=== PATIENT | male | born 1990 | race Caucasian/White ===

== ENCOUNTER 2024-08-04 18:53 | Emergency (ER) | payer OTHER ==
[~2024-08-04] VITALS: Ht 185.4 cm; Wt 96.4 kg
[2024-08-04 20:24] LABS: Trichomonas vaginalis (AMP) NOT DETECTED (NEGATIVE)
[2024-08-04 20:48] LABS: GC DNA AMPLIFICATION NEGATIVE (NEGATIVE)
[2024-08-04] MEDS ORDERED: IBUP-1022 PO (20:52)
[2024-08-04 20:58] VITALS: BP 130/77; TEMP 97.3; O2SAT 96
== END 2024-08-04 21:00 | disposition home or self-care (01) ==
LOC: M ED 18:53
DX: I86.1 Scrotal varices (principal); J45.909 Unspecified asthma, uncomplicated; Z79.1 Long term (current) use of non-steroidal anti-inflammatories (NSAID)